=== PATIENT | female | born 1980 | race Caucasian/White ===

== ENCOUNTER 2022-03-22 11:22 | Day surgery (SDC) | payer OTHER ==
[~2022-03-22 11:22] MED LIST: ANUSOL-HC30 G2 RC; PROCTOFOAM-HC 110 GM RC; TYLENOL-CODEINE1 TAB PO
[2022-03-22] MEDS ORDERED: MORGIDOX100 MG PO (20:11)
[2022-03-22] MEDS ORDERED: NAPR500T14 PO (20:11)
== END 2022-03-23 02:40 | disposition home or self-care (01) ==
LOC: CIR.AMB 11:22
PROVIDERS: ATTEND Obstetrics & Gynecology
DX: D25.0 Submucous leiomyoma of uterus (principal)

== ENCOUNTER 2022-09-04 09:55 | Inpatient (IN) | payer OTHER ==
[~2022-09-04] VITALS: Ht 162.6 cm; Wt 55.8 kg
[~2022-09-04 09:55] MED LIST changes: +MORGIDOX100 MG PO; +NAPR500T14 PO
[2022-09-07] MEDS ORDERED: Tylenol #3 PO (09:00)
[2022-09-07] MEDS ORDERED: NAPR500T14 PO (09:00)
== END 2022-09-07 11:48 | disposition home or self-care (01) | DRG 743 ==
LOC: CIR.AMB 09-06 09:25 → EDSTATUS 09-06 09:33 → SURH 09-06 09:34 → O/R 09-06 12:25 → SURH 09-06 14:45 → OB/GYN 09-06 19:58
PROVIDERS: ADMIT Obstetrics & Gynecology; ATTEND Obstetrics & Gynecology
PROC: 0UT77ZZ Resection of Bilateral Fallopian Tubes, Via Natural or Artificial Opening (ICD-10-PCS; 2022-09-06)
PROC: 0UQF7ZZ Repair Cul-de-sac, Via Natural or Artificial Opening (ICD-10-PCS; 2022-09-06)
PROC: 0USG7ZZ Reposition Vagina, Via Natural or Artificial Opening (ICD-10-PCS; 2022-09-06)
PROC: 0TJB8ZZ Inspection of Bladder, Via Natural or Artificial Opening Endoscopic (ICD-10-PCS; 2022-09-06)
PROC: 0UT97ZZ Resection of Uterus, Via Natural or Artificial Opening (ICD-10-PCS; principal; 2022-09-06 14:45)
DX: N80.03 Adenomyosis of the uterus (principal); N72 Inflammatory disease of cervix uteri; N81.11 Cystocele, midline; Z20.822 Contact with and (suspected) exposure to COVID-19

== ENCOUNTER 2025-02-01 11:05 | Outpatient (CLI) | payer OTHER ==
[~2025-02-01 11:05] MED LIST changes: +Tylenol #3 PO
== END 2025-02-01 11:06 | disposition home or self-care (01) ==
LOC: MRI 11:05
PROVIDERS: ATTEND Obstetrics & Gynecology
DX: R10.2 Pelvic and perineal pain (principal)
CPT/HCPCS: 72195